=== PATIENT | female | born 1940 | race Caucasian/White ===

== ENCOUNTER 2018-09-07 09:11 | Emergency (ER) | payer OTHER ==
[~2018-09-07] VITALS: Ht 170.2 cm; Wt 74.8 kg
[~2018-09-07 09:11] MED LIST: ASPIR 8181 MG PO; CALCIUM 600 +1 EAC1 PO; FISH OIL 1,001000 M2 PO; LEVOTHYROXINE 0.1 MG PO; TOPROL XL50 MG PO; VITAMIN D1000 UNI1 PO; VITAMINC500 PO; ZOCOR20 MG PO
[2018-09-07] MEDS ORDERED: UNICOMPLEX M TA1 TA1 PO (09:29)
[2018-09-07 11:36] VITALS: BP 141/58
== END 2018-09-07 11:36 | disposition home or self-care (01) ==
LOC: ER 09:11
DX: I10 Essential (primary) hypertension (principal); R42 Dizziness and giddiness; Z90.89 Acquired absence of other organs; Z96.643 Presence of artificial hip joint, bilateral